=== PATIENT | female | born 1990 | race Caucasian/White ===

== ENCOUNTER 2018-07-29 10:50 | Inpatient (IN) | payer MEDICAID ==
[2018-07-29] MEDS ORDERED: MISOPROSTOL 100 MCG TAB PO (11:30)
[2018-07-29] MEDS ORDERED: OXYCODONE/ASPIRIN (4.88/325) TAB PO (11:30)
[2018-07-29] MEDS ORDERED: MISOPROSTOL 200 MCG TAB PR (11:30)
[2018-07-29] MEDS ORDERED: CARBOPROST 250 MCG INJ IM (11:30)
[2018-07-29] MEDS ORDERED: OXYTOCIN 30 UNITS/LR 500 ML IV (11:30)
[2018-07-29] MEDS ORDERED: METHYLERGONOVINE 0.2 MG INJ IM (11:30)
[2018-07-29 11:36] LABS: ADD UMIC YES; UR ASCORBIC ACID NEGATIVE (NEGATIVE); UR BILIRUBIN (Dip) NEGATIVE (NEGATIVE); UR BLOOD (Dip) 1+ mg/dL (NEGATIVE); UR CLARITY SLIGHTLY CLOUDY (CLEAR); UR COLOR YELLOW (YELLOW); UR GLUCOSE (Dip) NEGATIVE (NEGATIVE); UR KETONES (Dip) NEGATIVE (NEGATIVE); UR LEUKOCYTE ESTERASE (Dip) NEGATIVE Leu/ul (NEGATIVE); UR MUCUS FEW /HPF (NONE SEEN); UR NITRITE (Dip) NEGATIVE (NEGATIVE); UR RBC 4 /HPF (0-5); UR SPECIFIC GRAVITY (Dip) 1.016 (1.003-1.030); UR TOTAL PROTEIN (Dip) 2+ mg/dl (NEGATIVE); UR UROBILINOGEN (Dip) NEGATIVE (NEGATIVE); UR WBC 1 /HPF (0-5)
[2018-07-29] MEDS: LACTATED RINGER'S 1,000 ML IV ×2 (11:37→18:29)
[2018-07-29 11:57] LABS: ADD MAN DIFF? NO
[2018-07-29 12:00] LABS: WHITE BLOOD COUNT 10.6 10^3/ul (4.8-10.8)
[2018-07-29 12:00] LABS: BASOPHILS % 0.2 % (0.0-2.0); EOSINOPHILS % 0.3 % (0.0-7.0); HEMATOCRIT 38.7 % (37.0-47.0); HEMOGLOBIN 12.8 g/dl (12.0-16.0); LYMPHOCYTES # 1.6 10^3/ul (0.8-2.9); LYMPHOCYTES % 15.3 % (15.0-51.0); MEAN CORPUSCULAR HEMOGLOBIN 28.6 pg (29.0-33.0); MEAN CORPUSCULAR HGB CONC 33.1 g/dl (32.0-37.0); MEAN CORPUSCULAR VOLUME 86.6 fl (82.0-101.0); MEAN PLATELET VOLUME 12.4 fl (7.4-10.4); MONOCYTE # 0.9 10^3/ul (0.3-0.9); MONOCYTES % 8.1 % (0.0-11.0); NEUTROPHILS % 75.6 % (39.0-77.0); NUCLEATED RED BLOOD CELLS% 0.2 /100WBC (0.0-0.0); PLATELET COUNT 215 10^3/UL (140-415); RED BLOOD COUNT 4.47 10^6/ul (4.20-5.40); RED CELL DISTRIBUTION WIDTH 15.4 % (11.5-14.5)
[2018-07-29 12:23] LABS: INR 0.82; PROTIME 11.4 Sec (11.9-14.9); PT RATIO 0.9
[2018-07-29 12:51] LABS: HEPATITIS B SURFACE ANTIGEN NEGATIVE (NEGATIVE)
[2018-07-29 12:58] LABS: ALANINE AMINOTRANSFERASE 16 IU/L (13-69); ALBUMIN 3.1 g/dl (3.3-4.9); ALBUMIN/GLOBULIN RATIO 1.06; ALKALINE PHOSPHATASE 183 IU/L (42-121); ANION GAP 7 (5-13); ASPARTATE AMINO TRANSFERASE 23 IU/L (15-46); BILIRUBIN,INDIRECT 0.1 mg/dl (0-1.1); BILIRUBIN,TOTAL 0.1 mg/dl (0.2-1.3); BLOOD UREA NITROGEN 10 mg/dl (7-20); CALCIUM 9.4 mg/dl (8.4-10.2); CARBON DIOXIDE 21 mmol/L (21-31); CHLORIDE 110 mmol/L (97-110); CREATININE 0.48 mg/dl (0.44-1.00); Estimated GFR > 60 mL/min (>60); GLUCOSE 85 mg/dl (70-220); POTASSIUM 4.5 mmol/L (3.5-5.1); SODIUM 138 mmol/L (135-144); URIC ACID 6.2 mg/dl (3.1-7.9)
[2018-07-29] MEDS: MISOPROSTOL 50 MCG CAPSULE PO ×3 (13:07→21:48)
[2018-07-29 15:02] LABS: RAPID PLASMA REAGIN NONREACTIVE (NR)
[2018-07-30] MEDS: LACTATED RINGER'S 1,000 ML IV ×3 (00:37→19:16)
[2018-07-30] MEDS: MISOPROSTOL 50 MCG CAPSULE PO (01:09)
[2018-07-30] MEDS: BUTORPHANOL 2 MG INJ IV (04:23)
[2018-07-30] MEDS: OXYTOCIN 30 UNITS/LR 500 ML IV ×4 (07:48→14:19)
[2018-07-30] MEDS: MINERAL OIL LIGHT 10 ML VIAL TOP (08:00)
[2018-07-30] MEDS: LIDOCAINE 1% (MPF) 30 ML INJ INJ (08:50)
[2018-07-30] MEDS: IBUPROFEN 600 MG TAB PO ×2 (10:40→23:39)
[2018-07-30] MEDS: LACTATED RINGER'S 1,000 ML IV* ×2 (11:09→19:50)
[2018-07-30] MEDS ORDERED: HYDROCODONE/APAP (5/325) TAB PO (11:30)
[2018-07-30] MEDS ORDERED: ACETAMINOPHEN 325 MG TAB PO (11:30)
[2018-07-30] MEDS ORDERED: OXYTOCIN 30 UNITS/LR 500 ML IV (11:30)
[2018-07-30] MEDS ORDERED: DIPHENHYDRAMINE 25 MG CAP PO (11:30)
[2018-07-30] MEDS ORDERED: CARBOPROST 250 MCG INJ IM (11:30)
[2018-07-30] MEDS ORDERED: MAGNESIUM HYDROXIDE 30ML CUP PO (11:30)
[2018-07-30] MEDS ORDERED: METHYLERGONOVINE 0.2 MG INJ IM (11:30)
[2018-07-30] MEDS ORDERED: MISOPROSTOL 200 MCG TAB PR (11:30)
[2018-07-30] MEDS ORDERED: ZOLPIDEM 5 MG TAB PO (11:30)
[2018-07-30] MEDS: LANOLIN HPA 1 PKT TOP (11:36)
[2018-07-30] MEDS: BENZOCAINE 20% 56 ML SPRAY TOP (11:36)
[2018-07-30] MEDS: WITCH HAZEL/GLYCERIN PAD PR (11:36)
[2018-07-30] MEDS: IBUPROFEN 800 MG TAB PO ×2 (11:38→17:51)
[2018-07-31] MEDS: LACTATED RINGER'S 1,000 ML IV* (03:09)
[2018-07-31] MEDS: LACTATED RINGER'S 1,000 ML IV (03:16)
[2018-07-31] MEDS: IBUPROFEN 800 MG TAB PO ×5 (06:01→23:40)
[2018-07-31 07:26] LABS: ADD MAN DIFF? NO
[2018-07-31 07:33] LABS: BASOPHILS % 0.3 % (0.0-2.0); EOSINOPHILS # 0.1 10^3/ul (0.0-0.5); EOSINOPHILS % 0.4 % (0.0-7.0); HEMATOCRIT 31.4 % (37.0-47.0); HEMOGLOBIN 10.5 g/dl (12.0-16.0); LYMPHOCYTES # 3.3 10^3/ul (0.8-2.9); LYMPHOCYTES % 20.7 % (15.0-51.0); MEAN CORPUSCULAR HEMOGLOBIN 29.2 pg (29.0-33.0); MEAN CORPUSCULAR HGB CONC 33.4 g/dl (32.0-37.0); MEAN CORPUSCULAR VOLUME 87.2 fl (82.0-101.0); MEAN PLATELET VOLUME 11.7 fl (7.4-10.4); MONOCYTE # 1.1 10^3/ul (0.3-0.9); MONOCYTES % 7.1 % (0.0-11.0); NEUTROPHIL # 11.2 10^3/ul (1.6-7.5); NEUTROPHILS % 70.5 % (39.0-77.0); NUCLEATED RED BLOOD CELLS% 0.2 /100WBC (0.0-0.0); PLATELET COUNT 181 10^3/UL (140-415); RED CELL DISTRIBUTION WIDTH 15.5 % (11.5-14.5)
[2018-07-31 07:33] LABS: WHITE BLOOD COUNT 15.9 10^3/ul (4.8-10.8)
[2018-07-31] MEDS: SENNA/DOCUSATE NA (8.6MG/50MG) TAB PO (09:03)
[2018-07-31] MEDS ORDERED: OXYTOCIN 30 UNITS/LR 500 ML IV ×2 (16:51→17:00)
[2018-07-31] MEDS ORDERED: LANOLIN HPA 1 PKT TOP (17:00)
[2018-07-31] MEDS ORDERED: NACL 0.9% 3 ML SYG IV (17:00)
[2018-07-31] MEDS ORDERED: WITCH HAZEL/GLYCERIN PAD PR (17:00)
[2018-07-31] MEDS ORDERED: ONDANSETRON 4 MG TAB PO (17:00)
[2018-07-31] MEDS ORDERED: MISOPROSTOL 200 MCG TAB PR (17:00)
[2018-07-31] MEDS ORDERED: BENZOCAINE 20% 56 ML SPRAY TOP (17:00)
[2018-07-31] MEDS ORDERED: ONDANSETRON 4 MG INJ IV (17:00)
[2018-07-31] MEDS ORDERED: ZOLPIDEM 5 MG TAB PO (17:00)
[2018-07-31] MEDS ORDERED: METHYLERGONOVINE 0.2 MG INJ IM (17:00)
[2018-07-31] MEDS ORDERED: OXYCODONE/ASPIRIN (4.88/325) TAB PO (17:00)
[2018-07-31] MEDS ORDERED: CARBOPROST 250 MCG INJ IM (17:00)
[2018-07-31] MEDS ORDERED: SENNA/DOCUSATE NA (8.6MG/50MG) TAB PO ×2 (17:00→21:00)
[2018-07-31] MEDS ORDERED: IBUPROFEN 600 MG TAB PO (18:00)
[2018-07-31] MEDS ORDERED: MAGNESIUM HYDROXIDE 30ML CUP PO (21:00)
[2018-08-01] MEDS: IBUPROFEN 800 MG TAB PO ×2 (05:30→12:12)
[2018-08-01] MEDS: MEASLES,MUMPS,RUBELLA VACCINE INJ SC* (09:00)
[2018-08-01] MEDS: VARICELLA VACCINE LIVE/PF 1,350 UNIT/0.5 ML ML SC* (09:00)
[2018-08-01] MEDS: DIPHTH/TET/ACEL PERTUSS (ADULT) 0.5 ML VIAL IM* (12:13)
[2018-08-02] MEDS ORDERED: DIPHTH/TET/ACEL PERTUSS (ADULT) 0.5 ML VIAL IM* (09:00)
== END 2018-08-01 17:16 | disposition home or self-care (01) | DRG 807 ==
LOC: PP1 07-30 10:50 → L-D 10:50
PROC: 3E033VJ Introduction of Other Hormone into Peripheral Vein, Percutaneous Approach (ICD-10-PCS; 2018-07-29)
PROC: 10E0XZZ Delivery of Products of Conception, External Approach (ICD-10-PCS; principal; 2018-07-30)
PROC: 0W8NXZZ Division of Female Perineum, External Approach (ICD-10-PCS; 2018-07-30)
DX: O48.0 Post-term pregnancy (principal); O16.4 Unspecified maternal hypertension, complicating childbirth; Z37.0 Single live birth; Z3A.00 Weeks of gestation of pregnancy not specified; O75.81 Maternal exhaustion complicating labor and delivery
CPT/HCPCS: 76815; 80053; 81001; 84560; 85025; 85384; 85610; 85730; 86592; 86850; 86900; 86901; 87340; 90715; 99464

== ENCOUNTER 2019-04-11 13:56 | Emergency (ER) | payer OTHER, MEDICAID ==
[2019-04-11 14:43] LABS: ADD UMIC YES; UR ASCORBIC ACID NEGATIVE (NEGATIVE); UR BACTERIA FEW /HPF (NONE SEEN); UR BILIRUBIN (Dip) NEGATIVE (NEGATIVE); UR BLOOD (Dip) 3+ mg/dL (NEGATIVE); UR CLARITY CLOUDY (CLEAR); UR COLOR YELLOW (YELLOW); UR GLUCOSE (Dip) NEGATIVE (NEGATIVE); UR KETONES (Dip) NEGATIVE (NEGATIVE); UR LEUKOCYTE ESTERASE (Dip) NEGATIVE Leu/ul (NEGATIVE); UR NITRITE (Dip) NEGATIVE (NEGATIVE); UR RBC > 182 /HPF (0-5); UR SPECIFIC GRAVITY (Dip) 1.024 (1.003-1.030); UR SQUAMOUS EPITHELIAL CELL FEW /HPF (FEW); UR TOTAL PROTEIN (Dip) 1+ mg/dl (NEGATIVE); UR UROBILINOGEN (Dip) NEGATIVE (NEGATIVE); UR WBC 39 /HPF (0-5)
[2019-04-11 15:12] LABS: ADD MAN DIFF? NO
[2019-04-11 15:13] LABS: BASOPHILS % 0.4 % (0.0-2.0); EOSINOPHILS # 0.1 10^3/ul (0.0-0.5); EOSINOPHILS % 1.2 % (0.0-7.0); HEMATOCRIT 39.8 % (37.0-47.0); HEMOGLOBIN 12.3 g/dl (12.0-16.0); LYMPHOCYTES % 40.9 % (15.0-51.0); MEAN CORPUSCULAR HEMOGLOBIN 26.2 pg (29.0-33.0); MEAN CORPUSCULAR HGB CONC 30.9 g/dl (32.0-37.0); MEAN CORPUSCULAR VOLUME 84.9 fl (82.0-101.0); MEAN PLATELET VOLUME 10.2 fl (7.4-10.4); MONOCYTE # 0.7 10^3/ul (0.3-0.9); MONOCYTES % 7.2 % (0.0-11.0); NEUTROPHIL # 4.9 10^3/ul (1.6-7.5); NEUTROPHILS % 50.1 % (39.0-77.0); PLATELET COUNT 366 10^3/UL (140-415); RED BLOOD COUNT 4.69 10^6/ul (4.20-5.40); RED CELL DISTRIBUTION WIDTH 14.6 % (11.5-14.5)
[2019-04-11 15:13] LABS: WHITE BLOOD COUNT 9.8 10^3/ul (4.8-10.8)
[2019-04-11 15:30] LABS: ALANINE AMINOTRANSFERASE 29 IU/L (13-69); ALBUMIN 4.8 g/dl (3.3-4.9); ALBUMIN/GLOBULIN RATIO 1.33; ALKALINE PHOSPHATASE 65 IU/L (42-121); ANION GAP 9 (5-13); ASPARTATE AMINO TRANSFERASE 23 IU/L (15-46); BILIRUBIN,INDIRECT 0.2 mg/dl (0-1.1); BILIRUBIN,TOTAL 0.2 mg/dl (0.2-1.3); BLOOD UREA NITROGEN 10 mg/dl (7-20); CALCIUM 9.9 mg/dl (8.4-10.2); CARBON DIOXIDE 27 mmol/L (21-31); CHLORIDE 102 mmol/L (97-110); CREATININE 0.63 mg/dl (0.44-1.00); Estimated GFR > 60 mL/min (>60); GLUCOSE 87 mg/dl (70-220); POTASSIUM 3.7 mmol/L (3.5-5.1); SODIUM 138 mmol/L (135-144); TOTAL PROTEIN 8.4 g/dl (6.1-8.1)
== END 2019-04-11 16:39 | disposition home or self-care (01) ==
LOC: FTE 13:56
DX: N93.9 Abnormal uterine and vaginal bleeding, unspecified (principal)
CPT/HCPCS: 36415; 76830; 76856; 80053; 81001; 84703; 85025; 99284-25